=== PATIENT | female | born 2000 | race Caucasian/White ===

== ENCOUNTER 2022-09-16 10:05 | Outpatient (CLI) | payer MEDICAID, SELFPAY | END 2022-09-16 10:06 | disposition home or self-care (01) | PROVIDERS: PCP Family Medicine; Visit Provider Family Medicine | DX: Z00.00 Encounter for general adult medical examination without abnormal findings (principal); Z13.1 Encounter for screening for diabetes mellitus; Z13.6 Encounter for screening for cardiovascular disorders | CPT/HCPCS: 80061; 82947 ==

== ENCOUNTER 2022-11-26 09:54 | Outpatient (CLI) | payer MEDICAID, SELFPAY ==
--- NOTE | 2022-11-26 10:00 | CRLHL7_ITS ---
For Patients: As a result of the Century Cures Act, medical imaging exams and procedure reports are released immediately into your electronic medical record. You may view this report before your referring provider. If you have questions, please contact your health care provider. INDICATION: Lump COMPARISON: CT chest 05/06/2022 TECHNIQUE: A CT volumetric acquisition was performed of the neck during intravenous infusion of 149 cc Isovue 370 nonionic intravenous contrast. Please note that all CT scans at this facility use dose modulation, iterative reconstruction, and/or weight-based dosing when appropriate to reduce radiation dose to as low as reasonably achievable. FINDINGS: There is a circumscribed fluid collection within the right cheek subcutaneous fat just beneath the skin measuring 1.5 x 1.0 x 1.5 cm. The underlying parotid gland is normal. Mildly prominent right submandibular lymph node is present measuring 2 cm. Nodule arising from the anterior/inferior thyroid isthmus noted measuring 2.8 cm. Lung apices are clear. Submandibular glands and left parotid gland are also normal. Normal larynx and pharynx. Mild adenopathy within the anterior triangle bilaterally measuring up to 1.7 cm on the right an 1.2 cm on the left. No sinus disease. Mastoid air cells are clear. Normal middle ear cavities. Cervical vertebral bodies are normal. Normal sella turcica. IMPRESSION: Circumscribed fluid collection just beneath the skin within the right cheek involving the subcutaneous fat superficial to the parotid gland measuring 1.5 x 1.0 x 1.5 cm. This appears to represent an infected sebaceous cyst. No evidence of fistula or congenital cyst. Mild bilateral cervical adenopathy, right greater than left. 2.8 cm left isthmus thyroid nodule. Ultrasound thyroid recommended. Please note that all CT scans at this facility use dose modulation, iterative reconstruction, and/or weight-based dosing when appropriate to reduce radiation dose to as low as reasonably achievable. Dictated by Carlos Ham MD @ 11/26/2022 12:12:32 PM (Electronically Signed)
== END 2022-11-26 09:55 | disposition home or self-care (01) ==
PROVIDERS: PCP Family Medicine; Visit Provider Surgery
DX: Q18.0 Sinus, fistula and cyst of branchial cleft (principal); E04.1 Nontoxic single thyroid nodule
CPT/HCPCS: 70491; Q9967

== ENCOUNTER 2022-12-02 07:43 | Day surgery (SDC) | payer MEDICAID, SELFPAY ==
[2022-12-01] MEDS: CEFAZOLIN 2 GM INJ IVP (09:15)
--- OUTSIDE RECORDS SUMMARY | 2022-12-02 07:46 | XMS_ITS ---
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, not intractable, without status epilepticus G40.009 Active 178276867 ALLERGIES No Known Allergies ENCOUNTERS Encounter Location Date Diagnosis [facility] [address] [place] [phone] Nov, [facility] [address] [place] [phone] Nov, 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 and Localization-related (focal) (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, not intractable, without status epilepticus G40.009 [facility] [address] [place] [address] Sep, [facility] [address] [place] [phone] July, [facility] [address] [place] [address] July, [facility] [address] [place] [phone] Feb, [facility] [address] [address] Feb, 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 and Localization-related (focal) (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, not intractable, without status epilepticus G40.009 [facility] [address] [place] [phone] Dec, [facility] [address] [place] [phone] Aug, 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 and Localization-related (focal) (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, not intractable, without status epilepticus G40.009 [facility] [address] [address] Aug, [facility] [address] [address] Jun, [facility] [address] [address] Apr, [facility] [address] [address] Apr, [facility] [address] [address] Mar, IMMUNIZATIONS No Known Immunizations SOCIAL HISTORY Qualifiers Date Never Smoker REASON FOR REFERRAL FUNCTIONAL STATUS PLAN OF CARE Activity Details Follow Up 1 Year Reason: Future Appointment Provider Name:Allyson Andrew, 2022-12-30 08:00:00 AM, [address], [address], [address], Future Test VEGF, Serum 20190916 Future Test COMPREHENSIVE METABO LIC PANEL [id number] Future Test Everolimus (Afinitor ) [id number] VITAL SIGNS Weight 126.4 kg 2019-09-16 Height 67.5 in 2019-09-16 BMI 43.00 kg/m2 2019-09-16 MEDICATIONS Medication Instructions Dosage Frequency Start Date End Date Duration Status Vitamin D Active Vitamin B-1 Acti ve levETIRAcetam 500 MG Orally twice a day (bid) 3 tablets 30 days Active Everolimus 10 MG Not-Takin g Cetirizine HCl 10 MG Orally daily (qd) as needed 1 tablet Active PROCEDURES No Known procedures RESULTS Name Result Date Reference Range VEGF, Serum 2019-09-29 VEGF, Serum 141 COMPREHENSIVE METABOLIC PANEL 2019-09-29 GLUCOSE UREA NITROGEN (BUN) CREATININE 0.8 eGFR NON-AFR. 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 Verde and Nely, EEG and review of results, 2:30MF SAP CRM DEVELOPER appt, New TS Appt- , R/S from 05/06/2019, New patient visit for tuberous sclerosis complex , EEG and review of results, SAP CRM DEVELOPER TS 730 EEG, 930 MDF, EMR Prep , New patient visit for tuberous sclerosis complex, EEG and review of results, New Appt 930 TS MDF, New Appt, 05/02 rescheduled--Reschedule TSC apt, New Appt- Insurance Providers Health Insurance Type Health Plan Insurance Address Health Plan Insurance Phone Health Plan Insurance Name Health Plan Coverage Dates Member ID Patient Relationship to Subscriber Patient Address Patient Phone Patient Name Patient Date of Subscriber ID Subscriber Name Subscriber Date of Group No [place] [address] [address] [facility] [address] [place] self Edwina Becerrakarie [id number]
[2022-12-02 08:01] LABS: Ur HCG Qualitative* Negative (Negative)
[2022-12-02 08:05] VITALS: BMI 48.5
[2022-12-02 08:11] VITALS: BP 134/84; PULSE 97; RESP 16; TEMP 36.9; O2SAT 97
[2022-12-02] MEDS: SODIUM CHLORIDE 0.9 % (FLUSH) 10 ML SYRINGE IVF (08:20)
[2022-12-02] MEDS: LACTATED RINGERS 1000 ML 1,000 ML 100 ML IV (08:20)
--- NOTE | 2022-12-02 09:12 | W.ANESCHARGE ---
Anesthesia Charges Start Date/Time Anesthesia Start Date: 12/02/22 Anesthesia Start Time: 09:11 Stop Date/Time Anesthesia Stop Date: 12/02/22 Anesthesia Stop Time: 09:54
[2022-12-02] MEDS: BUPIVACAINE 0.25% 30 ML INJECTION (09:27)
[2022-12-02 09:54] VITALS: BP 139/81; PULSE 75; RESP 14; TEMP 36.6; O2SAT 100
--- NOTE | 2022-12-02 09:56 | W.ANESCHARGE ---
Anesthesia Charges Start Date/Time Anesthesia Start Date: 12/02/22 Anesthesia Start Time: 09:11 Stop Date/Time Anesthesia Stop Date: 12/02/22 Anesthesia Stop Time: 09:54
[2022-12-02 10:00] VITALS: BP 140/92; PULSE 68; RESP 14; O2SAT 98
[2022-12-02 10:15] VITALS: BP 135/90; PULSE 67; RESP 16; O2SAT 97
--- NOTE | 2022-12-02 10:26 | P.GSOP_ITS ---
Operative Note Pre-op diagnosis: Right cheek sebaceous cyst Post-op diagnosis: Same Type of Procedure: Excision of right cheek cyst Indications: Patient is a 22-year-old female who presented to clinic with an enlarged right cheek sebaceous cyst. Different treatment options were reviewed including observation versus surgical excision. Workup included a CT scan, which demonstrated involvement of the cyst in subcutaneous space superficial and anterior to the parotid gland. After reviewing risks and benefits of each treatment option the patient has elected for excision. Given the location and size of the lesion recommended it be performed in the operating room. Risks and benefits of operative intervention were discussed at length with the patient. Risks included but was not limited to: Bleeding, infection, risk of damage to surrounding structures, possible need for additional procedures, risk of recurrent and postoperative complications such as pneumonia, pulmonary emboli or [place]. All questions and concerns were addressed with the patient agreeing to proceed. Procedure Description: After discussing the risks and benefits of the procedure, the patient signed informed consent.? The operative site was marked and the patient was brought to the operating room and placed on the operating table in supine position.? Care was taken to pad the patient's pressure points.?? The patient was then given sedation by anesthesia.?? The operative site was then prepped and draped in the usual sterile fashion.? A time-out was then performed. An elliptical incision was made around the right cheek cyst. Dissection was carried down sharply into subcutaneous space. Care was taken to remove the mass in its entirety without disrupting any underlying structures. The specimen was then passed off the back table to be sent to pathology. Bleeding was controlled with electrocautery and pressure. The incision was brought together with interrupted 3-0 Vicryl and running 4-0 Monocryl subcuticular stitch. The incision length was 3 cm. The incision was dressed with Dermabond and Steri- Strips. ? The patient was then woken and transported to the recovery area in stable condition. ? The patient tolerated the procedure well. Findings: Sebaceous cyst of the right cheek. Anesthesia: MAC and local Surgeon: Aditi Basilio MD Estimated blood loss (mL): 2 Additional Specimen Information: Right cheek cyst Condition: stable Disposition: same day Date of procedure: 12/02/22
[2022-12-02 10:30] VITALS: BP 138/82; PULSE 69; RESP 16; O2SAT 97
== END 2022-12-02 10:40 | disposition home or self-care (01) ==
PROVIDERS: Anesthesiology; PCP Family Medicine; Visit Provider Surgery
PROC: (CPT 11446; principal; 2022-12-02 09:00)
DX: L72.3 Sebaceous cyst (principal)
CPT/HCPCS: 11446; 00300; 81025; 88304; J0665; J0690; J1100; J1885; J2405; J2704; J3010; J7120

== ENCOUNTER 2023-09-17 11:03 | Outpatient (CLI) | payer MEDICAID, SELFPAY ==
--- OUTSIDE RECORDS SUMMARY | 2023-09-17 11:08 | XMS_ITS | Clinical Summary ---
Author Organization [facility] Address [place], [place] [address] Care Team Providers Care Senior Brand Manager Name Role Phone Kourtney Blevins MD Primary Care Provider [phone] Allergies No known active allergies Medications Medication Sig Dispensed Refills Start Date End Date Status triamcinolone (ARISTOCORT; KENALOG) 0.1 % creamIndications:Dermat itis Apply topically to affected area(s) 3 times daily. 1 Tube 1 11/06/2010 Active FLUoxetine (SARAFEM) 20 mg tablet Take 40 mg by mouth once daily. 2 09/14/2018 Active levETIRAcetam (KEPPRA) 500 mg tablet 3 Tabs. 01/21/2011 Active rizatriptan (MAXALT CERTIFIED HEARING INSTRUMENT DISPENSER) 10 mg disintegrating tablet 02/19/2016 Act lela clindamycin 1% (CLEOCIN-T) 1 % gel Apply topically to affected area(s). 03/07/2021 Active everolimus, antineoplastic, (AFINITOR) 10 mg tablet A ctive cholecalciferol (VITAMIN D3) 2,000 unit capsule Take by mouth. 02/19/2016 Active VITAMIN B COMPLEX ORAL Take 1 Tablet by mouth once daily. Active traZODone (DESYREL) 50 mg tablet Take 50 mg by mouth. 12/27/2018 Active Active Problems Problem Noted Date Diagnosed Date Hydrocephalus, unspecified type 10/17/2022 AUTOMATION ENGINEERING TECHNICIAN (ventriculoperitoneal) shunt status 9 Overview: 12/29/2018 New AUTOMATION ENGINEERING TECHNICIAN shunt with Medos at 120 (100 at time of insertion but increased prior to d/c home) - Dr. Greene 06/21/2020 Medos 120 (confirmed with x-ray after 20 attempts) 03/07/2021 Medos 120 ( setting noted on post-MRI skull xray done 03/06/21. NSG appt for today cancelled. Vents stable on MRI ) 07/10/2021 Medos 120 Epilepsy complicating pregna ncy, childbirth, or the puerperium, unspecified as to episode of care or not applicable(649.40) 10/24/2009 Mild intermittent asthma 07/11/2008 Overweight child 05/17/2008 Tuberous sclerosis 08/11/2005 Other convulsions 08/11/2005 Lack of normal physiological development, unspec ified 08/11/2005 Allergic rhinitis, cause unspecified 08/11/2005 Immunizations Name Administration Dates Next Due DT (Age < 7 years) 07/28/2002,03/24/2001 DTaP 12/12/2005, 3,03/24/2001,09/24,2000 HIB PRP-OMP (PedvaxHIB) 03/24/2001 HIB-HepB (Comvax) 2000,2000 Hep A, Ped/adol, 3 Dose 02/23/2013 Hepatitis A (Peds) 10/17/2013 Hepatitis B (Peds) 07/28/2002 Human Papilloma Virus Vaccine 02/23/2013, 013,10/06/2012 Inactivated Polio Vaccine 12/12/2005,04/2001,2000,07/22 Influenza A (H1N1), Inactivated 05/07/2009 Influenza A (H1N1), Inactiva james (Age >=3 Years) 05/07/2009,04/02/2009 Influenza, IIV3 (Age 6-35 mos) 12/20/2012,2010 Influenza, IIV3 (Age >=3 years) 02/01/2010 Influenza,LAIV3 Live Intrana daina (Flumist) 01/31/2008 Influenza,LAIV4 Live Intrana daina (Flumist) 01/31/2008 MMR 02/05/2002 MMRV 12/12/2005 Meningococcal Vaccine (Menactra) 10/06/2012 Pneumococcal conj 7-Valent (Prevnar 7) 3,2000,2000 Tdap 10/06/2012 Varicella Vaccine 05/17/2008 Family History Relation Name Status Comments Brother Alive Father Alive Mother Alive Sister Alive Social History Tobacco Use Types Packs/Day Years Used Date Smoking Tobacco: Passive Smo ke Exposure - Never Smoker Smokeless Tobacco: Never Comments:06-01-06 mother stat es no passive exposure. CW, RN Alcohol Use Standard Drinks/Week Comments No 0 (1 standard drink = 0.6 oz pur e alcohol) Social Connections Answer Date Recorded Frequency of Communication with Friends and Fami ly Not on file 03/23/2021 Financial Resource Strain Answer Date R ecorded Difficulty of Paying Living Expenses Not on file 03/23/2021 Difficulty of Paying Living Expenses Not on file 03/23/2021 Sex and Gender Information Value Date Recorded Sex Assigned at Not on file Gender Identity Not on file Sexual Orientation Not on file Obstetrics History Last Filed Vital Signs Vital Sign Reading Time Taken Comments Blood Pressure 127/86 07/10/2021 2:24 PM CDT Pulse 98 10/17/2022 9:16 AM CDT Temperature 36.8 ??C (98.2 ??F) 10/17/2022 9 :16 AM CDT Respiratory Rate 16 10/17/2022 9:16 AM CDT Oxygen Saturation 96% 10/17/2022 9:1 6 AM CDT Inhaled Oxygen Concentration - - Weight 126.3 kg (278 lb 8 oz) 2:24 PM CDT Actual weight Height 174 cm (5' 8.5) 07/10/2021 2:24 PM CDT Body Mass Index 41.73 07/10/2021 2:24 PM CDT Plan of Treatment Upcoming Encounters Date Type Department Care Team (Late st Contact Info) Description 10/09/2023 7:00 AM CDT Appointment [facility] [address] [place] [address] 10/09/2023 8:00 AM CDT Appointment [facility] [address] [place] [address] 10/09/2023 8:45 AM CDT Appointment [facility] [address] [place] [address] Health Maintenance Due Date Last Done Comments Depression screening for age 12+ 2012 HPV series for age 9-26 (3 - Risk 3-dose series) 06/24/2013 02/23/2013, 12/20/2012, 10/06/2012 HIV for age 15-65 05/23/2015 Hepatitis C screening for age 18-79 2018 COVID-19 vaccine series (3 - Pfizer risk series) 11/02/2020 10/05/2020, 09/14/2020 Pap test for age 21-65 2021 BMI (ht and wt on same day) for age 18+ 07/10/2022 07/10/2021 Tetanus booster 10/06/2022 10/06/2012 Influenza for age 9-49 11/22/2023 0, 05/07/2009, 05/07/2009, Additional history exists Pneumococcal series for age 6-64 Aged Out 07/28/2002, 2000, 2000 No longer eligible based on patient's age to complete this topic Tdap Completed 10/06/2012 Medical Devices Implanted Type Area Burglar Alarm Inspector Device Identifier Shelf Expiration Date Model / Serial / Lot Cath Neuro [id number] Medtronic Ventricular - [id number] Implanted:Qty: 1 on 02/13/2016 by Bety Greene MBChB at [facility] N/A: Cranium Medtr[employer] 10/20/2020 [id number]# / / [id number] Screw Neuro 4mm Matrixneuro Slf Drill Titnm - [id number] Implanted:Qty: 16 on 02/13/2016 by Bety Greene MBChB at [facility] N/A: Cranium J And J Depuy CMF [id number] 4.01# / / Christina Hole Cover Neuro 24mm Matrixneuro Shunt - [id number] Implanted:Qty: 1 on 02/13/2016 by Bety Greene MBChB at [facility] N/A: Cranium J And J Depuy CMF [id number]# / / [place] Hole Cover Neuro 17mm Synthes Low Pro Titnm - [id number] Implanted:Qty: 2 on 02/13/2016 by Bety Greene MBChB at [facility] N/A: Cranium J And J Depuy CMF [id number]# / / Dura Neuro 3x3in Duragen Sut - [id number] Implanted:Qty: 1 on 12/29/2018 by Bety Greene MBChB at [facility] Integra [employer]in 08/21/2019 [id number] / / [id number] Screw Neuro 4mm Matrixneuro Slf Drill Titnm - [id number] Implanted:Qty: 17 on 12/29/2018 by Bety Greene MBChB at [facility] Cranium J And J Depuy CMF [id number] 4.01# / / Screw Facial 4mm Matrixneuro Emergency - [id number] Implanted:Qty: 2 on 12/29/2018 by Bety Greene MBChB at [facility] Cranium J And J Depuy CMF [id number] 4.01# / / [place] Hole Cover Neuro 17mm Synthes Low Pro Titnm - [id number] Implanted:Qty: 3 on 12/29/2018 by Bety Greene MBChB at [facility] Cranium J And J Depuy CMF [id number]# / / Christina Hole Cover Neuro 17mm Synthes Low Pro Shunt - [id number] Implanted:Qty: 1 on 12/29/2018 by Bety Greene MBChB at [facility] Cranium J And J [facility] CMF [id number]# / / Care Teams Senior Brand Manager Relationship Specialty Start Date End Date Kourtney Blevins MD [address] [place] [phone] PCP - General Family Practice 11/19/20
== END 2023-09-17 11:04 | disposition home or self-care (01) ==
PROVIDERS: PCP Nurse Practitioner Family; Visit Provider Nurse Practitioner Family
DX: Z00.00 Encounter for general adult medical examination without abnormal findings (principal); D15.1 Benign neoplasm of heart; R79.89 Other specified abnormal findings of blood chemistry; N91.2 Amenorrhea, unspecified; Z13.0 Encounter for screening for diseases of the blood and blood-forming organs and certain disorders involving the immune mechanism; Z13.1 Encounter for screening for diabetes mellitus; Z13.6 Encounter for screening for cardiovascular disorders; Z13.21 Encounter for screening for nutritional disorder
CPT/HCPCS: 80048; 80053; 80061; 82306; 82607; 84443; 85025

== ENCOUNTER 2024-11-17 08:26 | Outpatient (CLI) | payer MEDICAID, SELFPAY | END 2024-11-17 08:27 | disposition home or self-care (01) | PROVIDERS: PCP Nurse Practitioner Family; Visit Provider Nurse Practitioner Family | DX: Z00.00 Encounter for general adult medical examination without abnormal findings (principal); E55.9 Vitamin D deficiency, unspecified; E53.8 Deficiency of other specified B group vitamins; R73.03 Prediabetes; E78.00 Pure hypercholesterolemia, unspecified | CPT/HCPCS: 80053; 80061; 82306; 82607; 83036; 84443; 85025 ==